=== PATIENT | female | born 1980 | race Caucasian/White ===

== ENCOUNTER 2016-06-12 09:08 | Outpatient (CLI) | payer BC | END 2016-06-12 23:00 | LOC: LAB SRH 09:08 | DX: K91.2 Postsurgical malabsorption, not elsewhere classified (principal); I10 Essential (primary) hypertension; D51.8 Other vitamin B12 deficiency anemias; E55.9 Vitamin D deficiency, unspecified | CPT/HCPCS: 90032; 90074; 90100; 90233; 90251; 91096; 91282; 91504; 91505; 92668; 92670; 92690; 95059 ==

== ENCOUNTER 2016-08-12 09:01 | Outpatient (CLI) | payer BC | END 2016-08-12 23:00 | LOC: LAB SRH 09:01 | DX: E61.1 Iron deficiency (principal); E55.9 Vitamin D deficiency, unspecified; E28.2 Polycystic ovarian syndrome; I10 Essential (primary) hypertension; D51.8 Other vitamin B12 deficiency anemias; K91.2 Postsurgical malabsorption, not elsewhere classified | CPT/HCPCS: 90032; 90074; 90100; 90233; 90251; 91096; 91282; 91286; 91504; 91505; 92668; 92670; 92690; 93140; 95059 ==